=== PATIENT | female | born 1980 | race Caucasian/White ===

== ENCOUNTER 2024-04-30 20:34 | Emergency (ER) | payer SELFPAY ==
--- NOTE | ~2024-04-30 | CT_ITS ---
EXAMINATION: CT brain wo con DATE: 04/30/2024 22:50 INDICATION: Uncontrollable movements . TECHNIQUE: Computed tomography (CT) of the head was performed without intravenous contrast. The mA wa s adjusted according to patient size. Iterative reconstruction technique was employed. The dose-lengt h product was 908.00 mGy-cm. COMPARISON: None. FINDINGS: Motion artifact is present, particularly at the skull base, which persisted in repeated imaging attem pts. No acute intracranial hemorrhage or extra-axial fluid collection. No hydrocephalus, mass, or herniation. No acute ischemic infarct. Unremarkable dural venous sinus attenuation. No acute osseous abnormality. Right posterior ethmoid and right maxillary mucosal thickening, the remaining aerated spaces are gerson r. Mild atrophy IMPRESSION: No acute intracranial process. Reviewed, dictated and finalized at location K. [employer] [employer]
[2024-04-30 20:54] VITALS: BP 227/110; PULSE 124; RESP 20; TEMP 36.7; O2SAT 98
--- NOTE | 2024-04-30 21:38 | ECG_ITS ---
Test Date: 2024-04-30 22:16:01 Measurements Intervals [place] Rate: 88 P: 67 RI: 194 QRS: 52 QRSD: 81 T: 62 QT: 376 QTc: 455 Interpretive Statements SINUS RHYTHM No previous ECG available for comparison Electronically Signed On 05-01-2024 10:37:35 [employer] OPERATOR by Manjeet Loco M.D.
[2024-04-30 22:08] LABS: Alveolar/Arterial O2 Gradient 15.9 mmHg; Base Excess ABG 5.3 mEq/l (+/-2.0); Fractional Inspired Oxygen 21 %; HCO3 ABG 26.5 mEq/l (22.0-26.0); Oxygen Content ABG 17.2 %vol (16.0-22.0); Oxygen Saturation ABG 98.4 % (95.0-100.0); Oxyhemoglobin 95.5 % THb (90.0-100.0); PCO2 ABG 28.4 mmHg (35.0-45.0); PO2 ABG 99.8 mmHg (80.0-100.0); PO2 FiO2 Ratio Arterial Blood 4.75 %; Total Hemoglobin 12.7 g/dL (12.0-18.0)
[2024-04-30 22:10] LABS: Site Drawn RIGHT RADIAL; pH ABG 7.587 (7.350-7.450)
[2024-04-30 22:11] LABS: Modified Allen's Test Pass
[2024-04-30] MEDS: BENZTROPINE MESYLATE INJ 1 MG/ML AMPUL IM (22:17)
[2024-04-30] MEDS: SODIUM CHLORIDE 0.9% IV 2,000 ML 999 ML IV CONT (22:25)
[2024-04-30 22:38] VITALS: PULSE 100
[2024-04-30 22:39] LABS: BEDSIDEPREGUCG Negative (Negative)
--- NOTE | 2024-04-30 22:40 | ED.GENADULT ---
HPI - General Adult General Chief complaint: Unspecified Stated complaint: calf cramping Time Seen by Provider: 04/30/24 21:05 Related Data Allergies Allergy/AdvReac Type Severity Reaction Status Date / Time No Known Allergies Allergy Verified 04/30/24 20:57 Exam Narrative: APPEARANCE: No apparent distress. Head: atraumatic. EYES: EOMI, NOSE: Atraumatic NECK: Trachea midline RESPIRATORY: No increased rate of breathing CARDIOVASCULAR: RRR, ABDOMINAL: Non-distended MUSCULOSKELETAl: No obvious deformities NEURO: Alert. Cranial nerves 2-12 grossly intact. Sensation light touch, motor function cerebellar function intact for 4 extremities. Patient has writhing motions of her hands/legs. SKIN:: Warm, dry. Normal color PSYCHIATRIC: Normal affect Course Vital Signs Vital signs: Vital Signs Temperature 98.1 F 04/30/24 20:54 Pulse Rate 124 H 04/30/24 20:54 Respiratory Rate 20 04/30/24 20:54 Blood Pressure 227/110 H 04/30/24 20:54 Pulse Oximetry 98 04/30/24 20:54 Oxygen Delivery Room Air 04/30/24 20:54 Temperature 98.1 F 04/30/24 20:54 Pulse Rate 100 04/30/24 22:38 Respiratory Rate 20 04/30/24 20:54 Blood Pressure 227/110 H 04/30/24 20:54 Pulse Oximetry 98 04/30/24 20:54 Oxygen Delivery Room Air 04/30/24 20:54 Medical Decision Making [facility] Narrative Medical decision making narrative: -Course: 43-year-old female presenting with uncontrollable muscle movements found have a magnesium 1.0. Patient was given Cogentin with no real improvement. Magnesium was replaced which improved her symptoms. Patient will be discharged on magnesium supplementation. Has been instructed to follow-up with the primary care physician she has been referred to. Given return precautions -DDX includes but is not limited to: Extrapyramidal symptoms, substance use disorder, restless leg syndrome, electrolyte abnormality -Co-morbidities complicating care: Restless leg syndrome Vital Signs Vital Signs: Vital Signs Temperature 98.1 F 04/30/24 20:54 Pulse Rate 124 H 04/30/24 20:54 Respiratory Rate 20 04/30/24 20:54 Blood Pressure 227/110 H 04/30/24 20:54 Pulse Oximetry 98 04/30/24 20:54 Oxygen Delivery Room Air 04/30/24 20:54 Temperature 98.1 F 04/30/24 20:54 Pulse Rate 100 04/30/24 22:38 Respiratory Rate 20 04/30/24 20:54 Blood Pressure 227/110 H 04/30/24 20:54 Pulse Oximetry 98 04/30/24 20:54 Oxygen Delivery Room Air 04/30/24 20:54 Lab Data 04/30/24 22:34 04/30/24 22:34 Labs: Lab Results 04/30/24 04/30/24 Range/Units 22:34 22:37 WBC Pending RBC Pending Hgb Pending Hct Pending MCV Pending MCH Pending MCHC Pending RDW Pending Plt Count Pending MPV Pending Immature Gran % (Auto) Pending Neut % (Auto) Pending Lymph % (Auto) Pending [place] % (Auto) Pending Eos % (Auto) Pending Baso % (Auto) Pending Lymph # (Auto) Pending [place] # (Auto) Pending Eos # (Auto) Pending Baso # (Auto) Pending Abs Immat Gran (auto) Pending Absolute Neuts (auto) Pending Absolute Nucleated RBC Pending Nucleated RBC % Pending PT Pending INR Pending APTT Pending Sodium Pending Potassium Pending Chloride Pending Carbon Dioxide Pending Anion Gap Pending BUN Pending Creatinine Pending Estim Creat Clear Calc Pending Estimated GFR Pending Glucose Pending Lactic Acid Pending Calcium Pending Phosphorus Pending Magnesium Pending Total Bilirubin Pending AST Pending ALT Pending Alkaline Phosphatase Pending Total Creatine Kinase Pending Troponin I Pending Total Protein Pending Albumin Pending Lipase Pending TSH (Reflex) Pending Urine Color Pending Urine Appearance Pending Urine pH Pending Ur Specific [place] Pending Urine Protein Pending Urine Glucose (UA) Pending Urine Ketones Pending Ur Blood (Man) Pending Urine Nitrate Pending Urine Bilirubin Pending Urine Urobilinogen Pending Leukocyte Esterase Rfl Pending POC Urine HCG, Qual Negative (Negative) Salicylates Pending Urine Opiates Screen Pending Urine Methadone Screen Pending Acetaminophen Pending Ur Barbiturates Screen Pending Ur Phencyclidine Scrn Pending Ur Amphetamine Screen Pending U Benzodiazepines Scrn Pending Urine Cocaine Screen Pending U Cannabinoids Screen Pending Ethyl Alcohol Pending Influenza A (RT-PCR) Pending Influenza B (RT-PCR) Pending RSV (RT-PCR) Pending SARS-CoV-2 RNA (RT-PCR) Pending ABG Data ABG results: 04/30/24 21:55 Puncture Site Right radial ABG pH 7.587 H* ABG pCO2 28.4 L ABG pO2 99.8 ABG PO2/FiO2 Ratio 4.75 ABG HCO3 26.5 H ABG O2 Saturation 98.4 ABG O2 Content 17.2 ABG Base Excess 5.3 A-a Gradient 15.9 Oxyhemoglobin 95.5 Total Hemoglobin 12.7 O2 Delivery Device Not Reportable O2 Liters/Min Not Reportable FiO2 21 Discharge Plan Discharge Clinical Impression: Hypomagnesemia, Restless leg Patient Disposition: Home, Self-Care Condition: Stable Instructions: Antibiotic Form, Hypomagnesemia (ED), Restless Legs Syndrome (ED) Additional Instructions: You were seen restless leg syndrome. Your magnesium was very low. Please take magnesium as directed. Please follow-up with primary care physician listed below. If your symptoms worsen or you develop any new symptoms please ED re-evaluation. Patient Language: Latvian Prescriptions: New magnesium 200 mg tablet 200 mg PO DAILY Qty: 30 0RF Follow-up/Referrals: Jose D Lentz MD [Physician] - 1 Week (Establish pcp. restless leg ) UNKNOWN,DOCTOR [Primary Care Provider] -
--- NOTE | 2024-04-30 22:40 | PC.NURSE ---
Patient taken to CT via w/c at this time while on monitor.
[2024-04-30 22:41] LABS: Basophils Absolute Auto 0.1 K/mm3 (0.0-0.1); Basophils Percent Auto 1.3 % (0.2-1.2); Eosinophils Percent Auto 0.6 % (0-4.4); Hematocrit 33.8 % (37.0-47.0); Immature Granulocyte Absolute 0.04 K/mm3 (0.00-0.031); Immature Granulocyte Percent A 0.6 % (0-0.5); Lymphocytes Percent Auto 29.1 % (18.3-44.2); Mean Corpuscular HGB Conc 35.5 g/dl (32-36); Mean Corpuscular Hemoglobin 35.3 pg (26-34); Mean Corpuscular Volume 99.4 fl (80-100); Mean Platelet Volume 8.6 fl (7.4-10.4); Monocytes Absolute Auto 0.5 K/mm3 (0.1-0.6); Monocytes Percent Auto 8.2 % (2.6-8.5); Neutrophils Absolute Auto 3.7 K/mm3 (1.3-6.7); Neutrophils Percent Auto 60.2 % (45.5-73.1); Platelet Count Result 257 k/mm3 (150-375); Red Cell Distribution Width 15.2 % (11.5-14.5); White Blood Count 6.2 K/mm3 (4.5-10.0)
[2024-04-30 22:47] LABS: Add Urine Microscopic? YES; Appearance Urine Clear (Clear); Bacteria Urine None Seen /hpf; Bilirubin Urine Negative (Negative); Blood Urine 2+ (Negative); Color Urine Yellow (Yellow); Glucose Urine UA Negative (Negative); Ketones Urine Negative (Negative); Leukocyte Esterase Ur Negative LEU/UL (Negative); Nitrate Urine Negative (Negative); Non Pathogenic Casts 0-2; Protein Urine Negative (Negative); RBC Urine 0-2 /hpf (0-2); Specific Grav Ur 1.005 (1.001-1.035); Squamous Epithelial Cell Urine Occasional /hpf (Few); Urobilinogen Urine 0.2 mg/dL (<2.0); WBC Urine 0-5 /hpf (0-3); pH Urine 7.5 (5.0-9.0)
[2024-04-30 22:52] LABS: Prothrombin Time 13.9 Seconds (11.1-14.7)
[2024-04-30 22:53] LABS: Alanine Aminotransferase 81 U/L (6-35); Albumin Level 3.5 g/dL (3.5-5.1); Alkaline Phosphatase 83 U/L (38-126); Anion Gap 4 mmol/L (4-12); Aspartate Amino Transferase 156 U/L (14-36); Bilirubin,Total 0.5 mg/dL (0.2-1.3); Blood Urea Nitrogen 10 mg/dL (7-17); Calcium 8.1 mg/dL (8.4-10.2); Carbon Dioxide 34 mmol/L (22-30); Chloride 97 mmol/L (98-107); Creatine Kinase 549 U/L (30-135); Estimated Glomerular Filt Rate > 60; Glucose 82 mg/dL (65-110); Lactic Acid Reflex 1.3 mmol/L (0.7-2.0); Lipase 293 U/L (23-300); Partial Thromboplastin Time 24.8 Seconds (22.3-36.8); Phosphorus 3.7 mg/dL (2.5-4.5); Potassium 3.2 mmol/L (3.4-5.0); Sodium 135 mmol/L (137-145)
[2024-04-30 22:58] LABS: Amphetamine Screen Urine Negative (Negative); Barbiturate Screen Urine Negative (Negative); Benzodiazepines Screen Urine Negative (Negative); Cannabinoid Screen Urine Negative (Negative); Cocaine Screen Urine Negative (Negative); Methadone Screen Urine Negative (Negative); Opiate Screen Urine Negative (Negative); Phencyclidine Screen Urine Negative (Negative)
[2024-04-30 22:59] LABS: Glucose Point of Care 86 mg/dl (65-105)
[2024-04-30 23:12] LABS: Troponin I < 0.012 ng/mL (0.000-0.034)
[2024-04-30 23:19] LABS: Influenza A QL RT-PCR Negative (Negative); Influenza B QL RT-PCR Negative (Negative); RSV RNA, RT-PCR Negative (Negative); SARS-CoV-2 RNA PCR Negative (Negative)
[2024-04-30 23:24] LABS: Thyroid Stimulating Hormone Reflex 0.306 uIU/mL (0.465-4.68)
[2024-04-30 23:34] VITALS: PULSE 86; RESP 22; O2SAT 97
[2024-04-30 23:35] VITALS: BP 205/114; PULSE 83; RESP 20; O2SAT 96
[2024-04-30] MEDS: POTASSIUM CHLORIDE 20 MEQ PACKET (FOR LIQUID) 40 MEQ PO (23:35)
[2024-04-30] MEDS: MAGNESIUM SULF 2 GM/WATER 50ML 2 GM/50 ML BAG IVPB (23:36)
[2024-04-30 23:45] VITALS: PULSE 80; RESP 20; O2SAT 98
--- NOTE | 2024-04-30 23:45 | PC.NURSE ---
Patient moved from room 16 to room H2. Patient moved from portable transport monitor to monitor tech in room. Patient has call light within reach. Patient has IV meds going via pump.
[2024-05-01] VITALS (7 sets, daily range): BP systolic 170–196; BP diastolic 106–112; PULSE 82–96; RESP 18–22; O2SAT 94–98
[2024-05-01 00:36] LABS: Acetaminophen < 10 ug/mL (10-30); Ethanol 40 mg/dL (<10); Salicylate < 1.0 mg/dL (2-20)
[2024-05-01] MEDS: SODIUM CHLORIDE 0.9% IV 1,000 ML 999 ML IV CONT (00:40)
[2024-05-01 01:02] LABS: Free T4 Free Thyroxine Reflex 0.72 ng/dL (0.78-2.19)
[2024-05-01] MEDS: MAGNESIUM SULF 2 GM/WATER 50ML 2 GM/50 ML BAG IVPB (01:57)
== END 2024-05-01 03:47 | disposition home or self-care (01) ==
PROVIDERS: Emergency Provider Emergency Medicine
DX: G25.81 Restless legs syndrome (principal); E83.42 Hypomagnesemia; Z20.822 Contact with and (suspected) exposure to COVID-19
CPT/HCPCS: 36415; 36600; 70450; 80053; 80143; 80179; 80307; 81001; 81025; 82077; 82550; 82805; 82948; 83605; 83690; 83735; 84100; 84439; 84443; 84484; 85018; 85025; 85610; 85730; 87637; 93005; 96361; 96365; 96366; 96372; 99284; A9270; J0515; J3475; J7030